=== PATIENT | male | born 1960 | race Caucasian/White ===

== ENCOUNTER → 2016-12-15 | Outpatient (CLI) | payer OTHER | LOC: KOH-I 12:17 | DX: M54.5 Low back pain (principal); M25.552 Pain in left hip; M47.896 Other spondylosis, lumbar region | CPT/HCPCS: 72110; 73502 ==

== ENCOUNTER → 2020-10-22 | Outpatient (CLI) | payer BC, OTHER ==
[~2020-10-22] MED LIST: ATORVASTATIN CA20 MG PO; BRILINTA 90 MG90 MG PO; COZAAR 25MG TAB25 MG PO; ECOTRIN81 MG PO; FLOMAX0.4 MG PO; LOPRESSOR 25 MG25 MG PO; NITROGLYCERIN0.4 MG SL
== END ==
LOC: KOH-I 08:39
DX: R10.84 Generalized abdominal pain (principal); N28.1 Cyst of kidney, acquired; N20.0 Calculus of kidney; K59.00 Constipation, unspecified
CPT/HCPCS: 74176

== ENCOUNTER → 2020-11-11 | Outpatient (CLI) | payer BC, OTHER | LOC: KOH-I 14:50 | DX: R10.2 Pelvic and perineal pain (principal); M54.5 Low back pain; R10.32 Left lower quadrant pain; R10.31 Right lower quadrant pain; M51.36 Other intervertebral disc degeneration, lumbar region; M51.37 Other intervertebral disc degeneration, lumbosacral region | CPT/HCPCS: 72148; 72195 ==

== ENCOUNTER → 2020-11-26 | Outpatient (CLI) | payer BC, OTHER | LOC: EMI 14:30 → KOH-I 12-03 14:30 | DX: M54.5 Low back pain (principal); M54.2 Cervicalgia; M50.31 Other cervical disc degeneration, high cervical region; M48.02 Spinal stenosis, cervical region; M47.816 Spondylosis without myelopathy or radiculopathy, lumbar region | CPT/HCPCS: 72141; 72146 ==

== ENCOUNTER → 2021-11-02 | Outpatient (CLI) | payer BC | LOC: KOH-I 11:24 | DX: M25.552 Pain in left hip (principal); M70.62 Trochanteric bursitis, left hip; M16.12 Unilateral primary osteoarthritis, left hip | CPT/HCPCS: 73721 ==